=== PATIENT | female | born 1980 | race Caucasian/White ===

== ENCOUNTER 2023-09-25 08:08 | Outpatient (CLI) | payer BC | END 2023-09-25 08:09 | disposition home or self-care (01) | LOC: CSHCT 08:08 | PROVIDERS: ATTEND Internal Medicine Critical Care Medicine | DX: I26.99 Other pulmonary embolism without acute cor pulmonale (principal) | CPT/HCPCS: 71275 ==

== ENCOUNTER 2025-11-08 13:20 | Outpatient (CLI) | payer BC | END 2025-11-08 13:21 | disposition home or self-care (01) | LOC: CSHMRI 13:20 | PROVIDERS: ATTEND Clinical Nurse Specialist Medical-Surgical | DX: M50.123 Cervical disc disorder at C6-C7 level with radiculopathy (principal) | CPT/HCPCS: 72141 ==